=== PATIENT | male | born 1975 | race Hispanic/Latino ===

== ENCOUNTER 2018-07-04 12:48 | Emergency (ER) | payer SELFPAY ==
[2018-07-04] MEDS ORDERED: Lidocaine 1% (PF) 30 ML VIAL ONE (13:04)
[2018-07-04] MEDS ORDERED: Adacel (T-DAP) 0.5 ML VIAL ONE (13:04)
--- NOTE | 2018-07-04 13:23 | RAD ---
RIGHT HAND 3 VIEWS: Date: 07/04/18 HISTORY: Right hand injury. FINDINGS/IMPRESSION: Metallic mail traverses the base of the proximal phalanx index finger on all three views. Tiny, thin metallic wire fragment arises from the shaft of the nail immediately medial to the medial cortex of t he involved portion of the proximal phalangeal injury. The nail exits the tissues posteriorly on the lateral view. POS: [facility]
== END 2018-07-04 14:46 | disposition home or self-care (01) ==
LOC: ERS 12:48
DX: S61.240A Puncture wound with foreign body of right index finger without damage to nail, initial encounter (principal); W26.8XXA Contact with other sharp object(s), not elsewhere classified, initial encounter
CPT/HCPCS: 90471; 90715; J2001